=== PATIENT | female | born 1965 | race Caucasian/White ===

== ENCOUNTER 2018-09-21 12:21 | Emergency (ER) | payer BC ==
[2018-09-21 13:18] VITALS: BP 177/131
[2018-09-21 14:00] LABS: Influenza A Molecular NEGATIVE (Negative); Influenza B Molecular NEGATIVE (Negative)
--- NOTE | 2018-09-21 14:18 | UC ---
UC General HPI - HPI Summary HPI Summary: Patient complaining of some URI symptoms that are improving. Has had nausea and vomiting. for the past 2 days. now some diarrhea - History of Current Complaint Chief Complaint: UCGeneralIllness Stated Complaint: ST,CONGESTION,FEVER Time Seen by Provider: 09/21/18 13:40 Hx Obtained From: Patient Hx Last Menstrual Period: last month Onset/Duration: Sudden Onset, Lasting Days Timing: Intermittent Episodes Lasting: Onset Severity: Mild Current Severity: Moderate Pain Intensity: 6 Associated Signs & Symptoms: Positive: Diarrhea, Vomiting - Allergy/Home Medications Allergies/Adverse Reactions: Allergies Allergy/AdvReac Type Severity Reaction Status Date / Time No Known Allergies Allergy Verified 09/21/18 13:05 Home Medications: Home Medications Ascorbic Acid/Multivit-Min [Emergen-C Vitamin C] 1 dennis PO DAILY 09/21/18 [ History Confirmed 09/21/18] Dm/PE/Acetaminophen/Chlorphenr [[place] Plus Cold &] 1 cap PO DAILY [History Confirmed 09/21/18] Ibuprofen TAB* [Advil TAB*] 400 mg PO Q6H PRN 09/21/18 [History Confirmed ] Metoprolol Succinate [Metoprolol Succinate ER] 25 mg PO DAILY 09/21/18 [History Confirmed 09/21/18] PMH/Surg Hx/FS Hx/Imm Hx Previously Healthy: Yes - Surgical History Surgical History: Yes Surgery Procedure, Year, and Place: tonsilectomy. enometrial ablation - Family History Known Family History: Positive: Hypertension - Social History Alcohol Use: None Substance Use Type: None Smoking Status (MU): Light Every Day Tobacco Smoker Type: Cigarettes Amount Used/How Often: 6 daily Review of Systems All Other Systems Reviewed And Are Negative: Yes Constitutional: Positive: Negative Skin: Positive: Negative Eyes: Positive: Negative ENT: Positive: Sore Throat Respiratory: Positive: Negative Cardiovascular: Positive: Negative Gastrointestinal: Positive: Diarrhea, Nausea Genitourinary: Positive: Negative Motor: Positive: Negative Neurovascular: Positive: Negative Musculoskeletal: Positive: Negative Neurological: Positive: Negative Psychological: Positive: Negative Is Patient Immunocompromised?: No Physical Exam Triage Information Reviewed: Yes Appearance: No Pain Distress, Well-Nourished, Ill-Appearing Vital Signs: Initial Vital Signs Temp 98.2 F 09/21/18 13:08 Pulse 119 09/21/18 13:08 Resp 20 09/21/18 13:08 BP 177/131 09/21/18 13:08 Pulse Ox 98 09/21/18 13:08 Vital Signs Reviewed: Yes Eye Exam: Normal ENT: Positive: Pharyngeal erythema, TMs normal Dental Exam: Normal Neck exam: Normal Neck: Positive: Supple, Nontender, No Lymphadenopathy Respiratory Exam: Normal Respiratory: Positive: Chest non-tender, Lungs clear, Normal breath sounds Cardiovascular Exam: Normal Cardiovascular: Positive: No Murmur, Pulses Normal, Tachycardia Abdominal Exam: Normal Abdomen Description: Positive: Nontender, No Organomegaly, Soft, CVA Tenderness (R) - neg, CVA Tenderness (L) - neg Musculoskeletal Exam: Normal Neurological Exam: Normal Psychological Exam: Normal Skin Exam: Normal Course/Dx - Course Course Of Treatment: hx obtained exam performed, meds reviewed, treaed for nasuea and diarrhea, patient is very anxious due to looming work requirments. is anxious to get back to work - Diagnoses Provider Diagnosis: Nausea vomiting and diarrhea Discharge - Sign-Out/Discharge Documenting (check all that apply): Patient Departure All imaging exams completed and their final reports reviewed: No Studies - Discharge Plan Condition: Stable Disposition: HOME Prescriptions: Ondansetron ODT TAB* [Zofran 4 MG Odt TAB*] 4 mg PO Q8H PRN #18 tab.odt PRN Reason: Nausea Patient Education Materials: Acute Nausea and Vomiting (ED) Forms: *Work Release Referrals: Morgan Andrew MD [Primary Care Provider] - Additional Instructions: 1. take the medication as prescribed for nausea 2. Practice good hand washing and increase fluid intake 3. FOllow up if not improving. - Billing Disposition and Condition Condition: STABLE Disposition: Home - Attestation Statements Provider Attestation: Per institutional requirements, I have reviewed the chart, however, I was not consulted specifically or made aware of this patient by the midlevel provider. I did not personally evaluate, interact with , or disposition this patient.
== END 2018-09-21 14:25 | disposition home or self-care (01) ==
LOC: UCCORT 12:21
DX: R11.2 Nausea with vomiting, unspecified (principal); R19.7 Diarrhea, unspecified; F17.210 Nicotine dependence, cigarettes, uncomplicated; J02.9 Acute pharyngitis, unspecified; R50.9 Fever, unspecified; R09.81 Nasal congestion
CPT/HCPCS: 99202; G0463